=== PATIENT | male | born 2000 | race Two or more races ===

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

== ENCOUNTER 2020-02-26 12:31 | Emergency (ER) | payer MEDICAID ==
[~2020-02-26] VITALS: Ht 170.2 cm; Wt 61.7 kg
[2020-02-26 13:04] VITALS: BP 133/76
== END 2020-02-26 13:32 | disposition home or self-care (01) ==
LOC: ER 12:31
DX: S63.501A Unspecified sprain of right wrist, initial encounter (principal); W01.0XXA Fall on same level from slipping, tripping and stumbling without subsequent striking against object, initial encounter; Y93.23 Activity, snow (alpine) (downhill) skiing, snowboarding, sledding, tobogganing and snow tubing; Y92.89 Other specified places as the place of occurrence of the external cause; Y99.8 Other external cause status
CPT/HCPCS: 29125; 73090; 73110

== ENCOUNTER 2021-06-01 14:03 | Emergency (ER) | payer MEDICAID ==
[~2021-06-01] VITALS: Ht 170.2 cm; Wt 61.2 kg
[2021-06-01 17:25] VITALS: BP 153/96
[2021-06-01] MEDS ORDERED: ACETAMINOPHEN/CODEINE#3 (300/30mg) TAB PO ONE (18:00)
== END 2021-06-01 20:01 | disposition home or self-care (01) ==
LOC: ER 14:05
DX: S62.011A Displaced fracture of distal pole of navicular [scaphoid] bone of right wrist, initial encounter for closed fracture (principal); V00.131A Fall from skateboard, initial encounter; Y93.51 Activity, roller skating (inline) and skateboarding; Y92.89 Other specified places as the place of occurrence of the external cause; Y99.8 Other external cause status
CPT/HCPCS: 73110